=== PATIENT | female | born 1960 | race Caucasian/White ===

== ENCOUNTER 2020-04-18 07:43 | Outpatient (CLI) | payer OTHER, SELFPAY ==
--- NOTE | ~2020-04-18 | MM_ITS ---
EXAMINATION: MM screening keiry BI w juan j HISTORY: Screening mammogram TECHNIQUE: Craniocaudal and mediolateral oblique 3-D tomosynthesis images were obtained and synthetic 2-D images were generated. CAD analysis was submitted and interpreted. COMPARISON: 02/12/2019, 02/09/2018, 02/05/2017 bilateral digital screening mammogram examinations BREAST PARENCHYMAL COMPOSITION: There are scattered areas of fibroglandular density. FINDINGS: There is no evidence of suspicious mass, calcification, or architectural distortion to sugg est malignancy in either breast. There has been no suspicious interval change. IMPRESSION: 1. No mammographic evidence of malignancy. 2. Recommend routine screening mammography in one year. BI-RADS Category 1: Negative Reviewed, dictated and finalized at location A. [employer]
--- NOTE | ~2020-04-18 | DEXA_ITS ---
Bone Density Report Name: Madeleine Poole Age: 59 Sex: Female Ethnicity: White Date of : 1960 Indication: postmenopausal; height loss; Referring Provider: Katina, Nicole Study: Bone densitometry was performed. Exam Date: April 18, 2020 Accession number: [id number] Bone Density: Region BMD T-score Z-score Classification AP Spine (L1-L4) 1.346 2.7 4.0 Normal Femoral Neck (Left) 0.993 1.3 2.5 Normal Total Hip (Left) 1.160 1.8 2.6 Normal Total Hip Bilateral Avg 1.128 1.5 2.3 Normal Femoral Neck (Right) 0.943 0.8 2.0 Normal Total Hip (Right) 1.094 1.2 2.0 Normal World Health Organization criteria for BMD impression classify patients as: Normal (T-score at or above -1.0), Osteopenia (T-score between -1.0 and -2.5), or Osteoporosis (T-score at or below -2.5). 10-year Fracture Risk: FRAX not reported because: All T-scores for Spine Total, Hip Total, Femoral Neck at or above -1.0 Clinical Information Provided by Patient: Has used the following medications: Vitamin D Patient maximum height was 66.5 Menopause Age: 52 No regular weight bearing exercise Drinks caffeinated beverages Onset of menses at age 15 Number of children 3 Impression: The patient has normal bone mass. Discussion: BONE DENSITY IS ABOVE THE MINIMUM DESIRABLE LEVEL AT ALL SKELETAL SITES TESTED. This patient?s bone mineral density is above the minimum desirable level (T-score -1.0 or better) at all sites measured. The patient should follow a healthful lifestyle (good nutrition with adequate calcium and vitamin D, and appropriate weight-bearing exercise). Follow-Up: Consider repeating this study in 5 years or sooner if there is some new clinical indication. Reported by: [facility] on 04/18/2020 8:28:00 AM. Reviewed, dictated and finalized at location ATrevor ARREOLA
== END 2020-04-18 07:44 | disposition home or self-care (01) ==
PROVIDERS: PCP Internal Medicine; Visit Provider Nurse Practitioner
DX: Z12.31 Encounter for screening mammogram for malignant neoplasm of breast (principal); Z78.0 Asymptomatic menopausal state
CPT/HCPCS: 77063; 77067; 77080

== ENCOUNTER 2020-05-19 07:50 | Outpatient (CLI) | payer OTHER, SELFPAY ==
--- NOTE | 2020-05-19 12:53 | P.PCNPFT_ITS ---
PFT Interpretation This is a pulmonary function test with pre and post-bronchodilator spirometry, plethysmography and diffusing capacity. The test was performed and results interpreted in accordance with the 2019 and 2005 ATS/ERS Task Force guidelines respectively using the Global Lung Function Initiative-2012 reference equations. Patient demonstrated good effort and c ooperation. Reproducibility criteria were met. The quality of the pre bronchodilator spirometry maneuver was Grade A and post bronchodilator spirometry maneuver was Grade A. Findings: Spirometry: the contour of the inspiratory and expiratory flow tracing are normal. The pre bronchodilator FVC is 3.35 L, 95% predicted. The pre bronchodilator FEV1 is 2.66 L, 96% predicted. The FEV1: FVC ratio was 80%. The post bronchodilator FVC is 3.25 L, representing a 3% decrease. The post bronchodilator FEV1 is 2.69 L, representing 1% increase. Plethysmography: The total lung capacity is 4.42 L, 82% predicted. The functional residual capacity is 1.75 L, 57% predicted. The residual volume is 1.07 L, 53% predicted. Diffusing capacity: The absolute diffusion capacity is 21.0, 92% predicted. The diffusing capacity corrected for alveolar volume is 4.78, 109% predicted. Impression: The spirometry is normal without evidence of an obstructive abnormality. There is no significant improvement after inhaling a single dose of albuterol. There is a reduction in the residual volume and functional residual capacity with a normal total lung capacity. This is an abnormal but nonspecific lung volume pattern. The diffusing capacity is normal. There are no prior studies for comparison
== END 2020-05-19 07:51 | disposition home or self-care (01) ==
PROVIDERS: PCP Physician Assistant; Visit Provider Physician Assistant
DX: R05 Cough (principal)
CPT/HCPCS: 94060; 94726; 94729

== ENCOUNTER 2020-12-17 11:53 | Emergency (ER) | payer OTHER, SELFPAY ==
--- NOTE | ~2020-12-17 | CT_ITS ---
EXAMINATION: CTA chest PE protocol DATE: 12/17/2020 13:54 INDICATION: Chest pain. TECHNIQUE: Computed tomography angiography (CTA) of the chest was performed with 100 mL Omnipaque-350 intravenous contrast timed to evaluate the pulmonary arteries. Coronal maximum intensity projection 3D-reconstructions were created by the technologist. Automated exposure control and iterative reconst ruction technique were employed. The dose-length product was 831.21 mGy-cm. COMPARISON: None. FINDINGS: Calcified pulmonary nodules and calcified hilar and mediastinal lymph nodes are consistent with old granulomatous disease. There is mild atelectasis bilaterally. No pleural effusion. The heart size is normal. No pericardial effusion. There is no pulmonary embolus. There is levocurvature of up per thoracic spine and dextroscoliosis of lower thoracic spine. There is mild thoracic spondylosis. IMPRESSION: 1. No pulmonary embolus. Reviewed, dictated and finalized at location A. IMPRESSION: 1. No pulmonary embolus.
--- NOTE | ~2020-12-17 | XR_ITS ---
EXAMINATION: XR chest 2V EXAM DATE: 12/17/2020 12:24 INDICATION: chest pain x 3 days, cough. TECHNIQUE: Frontal and lateral projections of the chest obtained and reviewed. Comparison is made to prior examination from 12/01/2018. FINDINGS: Couple of calcified granulomata. The lungs are otherwise clear. There are no pleural effu sions. The cardiomediastinal silhouette is within normal limits. There is no pneumothorax suspected . The bones and soft tissues are unremarkable. IMPRESSION: No acute cardiopulmonary findings. Reviewed, dictated and finalized at location B.
[2020-12-17 12:05] VITALS: BP 161/70; PULSE 61; RESP 17; TEMP 36.6; O2SAT 100
--- NOTE | 2020-12-17 12:06 | ECG_ITS ---
Measurements Intervals Gilman Rate: 57 P: 66 MD: 148 QRS: 7 QRSD: 93 T: 49 QT: 412 QTc: 403 Interpretive Statements SINUS BRADYCARDIA DELAYED PRECORDIAL R/S TRANSITION LOW QRS VOLTAGE IN PRECORDIAL LEADS BORDERLINE ECG Electronically Signed On 12-17-2020 12:20:00 CDT by Sterling Hui D.O.
[2020-12-17 12:48] LABS: Basophils Percent Auto 0.5 % (0.2-1.2); Eosinophils Absolute Auto 0.2 K/mm3 (0-0.3); Hematocrit 37.9 % (37.0-47.0); Hemoglobin 12.4 g/dL (12.0-15.0); Immature Granulocyte Absolute 0.02 K/mm3 (0.00-0.031); Immature Granulocyte Percent A 0.3 % (0-0.5); Lymphocytes Absolute Auto 1.66 K/mm3 (0.9-3.2); Lymphocytes Percent Auto 26.6 % (18.3-44.2); Mean Corpuscular HGB Conc 32.7 g/dl (32-36); Mean Corpuscular Hemoglobin 29.9 pg (26-34); Mean Corpuscular Volume 91.3 fl (80-100); Mean Platelet Volume 9.8 fl (7.4-10.4); Monocytes Absolute Auto 0.5 K/mm3 (0.1-0.6); Monocytes Percent Auto 7.7 % (2.6-8.5); Neutrophils Absolute Auto 3.9 K/mm3 (1.3-6.7); Neutrophils Percent Auto 61.9 % (45.5-73.1); Platelet Count Result 207 k/mm3 (150-375); Red Blood Count 4.15 M/mm3 (4.2-5.4); Red Cell Distribution Width 14.1 % (11.5-14.5); White Blood Count 6.2 K/mm3 (4.5-10.0)
[2020-12-17 12:57] LABS: Partial Thromboplastin Time 26.5 SECONDS (22.3-36.8)
[2020-12-17 13:03] LABS: Anion Gap 7 mmol/L (8-16); Blood Urea Nitrogen 15 mg/dL (7-17); Calcium 9.4 mg/dL (8.4-10.2); Carbon Dioxide 30 mmol/L (22-30); Chloride 106 mmol/L (98-107); Estimated CRCL calculation 82 ml/min; Estimated Glomerular Filt Rate > 60; Glucose 89 mg/dL (65-110); Potassium 3.6 mmol/L (3.4-5.0); Sodium 143 mmol/L (137-145)
[2020-12-17 13:09] VITALS: BP 170/73; PULSE 62; RESP 16; O2SAT 97
[2020-12-17 13:14] LABS: Troponin I < 0.012 ng/mL (0.000-0.034)
--- NOTE | 2020-12-17 13:21 | ED.CHESTPAIN ---
HPI - Chest Pain General Chief Complaint: Chest Pain Stated Complaint: heartburn, back pain Time Seen by Provider: 12/17/20 13:04 Source: RN notes reviewed History of Present Illness HPI narrative: Patient presents emergency department from home for chest pain. Patient states chest pain began approximately 3 days ago. The pain is located in the left upper chest and radiates around to the back and down the left arm. Pain is described as aching in nature states it is improved when she is coughing she notes mild shortness of breath she denies any fevers or chills nausea vomiting diarrhea or any other symptoms denies any previous cardiac history. States the pain feels like gastric reflux Related Data Home Medications Medication Instructions Recorded Confirmed cholecalciferol (vitamin D3) 25 25 mcg PO DAILY 04/25/20 04/25/20 mcg (1,000 unit) capsule magnesium 250 mg tablet 250 mg PO DAILY 04/25/20 04/25/20 Allergies Allergy/AdvReac Type Severity Reaction Status Date / Time No Known Allergies Allergy Unverified 04/25/20 08:29 Review of Systems Review of Systems: Gen.: Denies fevers or chills ENT: Denies congestion Respiratory: Denies shortness of breath or cough CV: See HPI GI: Denies abdominal pain nausea, emesis or diarrhea Musculoskeletal: Denies back pain or muscle pain Neuro: Denies numbness, tingling, weakness or focal weakness Skin: Denies rash Except as documented, all other systems reviewed and negative [facility] Past Medical History Medical History Anxiety Family History Family History Father Cancer Other Cerebrovascular accident Social History Social History Smoking status: Never smoker Alcohol intake: current Substance use: never Exam Narrative: APPEARANCE: No acute distress, nontoxic, resting in bed EYES: EOMI HEENT: Normocephalic, atraumatic, OMM RESPIRATORY: No respiratory distress Clear to auscultation bilaterally with no rhonchi wheezing or rales. CARDIOVASCULAR: Regular rate and rhythm without murmurs rubs or gallops. Chest: Tender palpation of the left anterior chest in the region of ribs 4 through 6 with corresponding tenderness in the back in the same region ABDOMINAL: Soft, nontender, nondistended, no rebound or guarding Back: No midline thoracic or tenderness palpation tender palpation over left paravertebral muscles T4-6 MUSCULOSKELETAl: Moves all extremities. No clubbing, cyanosis or edema. NEURO: Awake and alert. Following commands, speech normal, no focal deficits SKIN:: Warm, dry. No rashes lesions or abrasions PSYCHIATRIC: Normal affect/mood, Course Course Emergency Course: Patient states chest pain is resolved at this time with medication Plan discussed with Dr. Hui. At this time with patient's pain ongoing for 3 days and on current heart score 2 June discharge to follow-up as an outpatient Discussed with patient results of workup and diagnosis. Discussed need for follow-up with primary care, proper use of medication, and reasons to return to the emergency department. Patient understands and agrees to current treatment plan Vital Signs Vital signs: Vital Signs Temperature 97.8 F 12/17/20 12:05 Pulse Rate 61 12/17/20 12:05 Respiratory Rate 17 12/17/20 12:05 Blood Pressure 161/70 H 12/17/20 12:05 Pulse Oximetry 100 12/17/20 12:05 Temperature 97.8 F 12/17/20 12:05 Pulse Rate 62 12/17/20 13:09 Respiratory Rate 16 12/17/20 13:09 Blood Pressure 170/73 H 12/17/20 13:09 Pulse Oximetry 97 12/17/20 13:09 MDM - Chest Pain MDM Narrative Medical decision making narrative: Patient's EKGs and labs are without significant high risk changes. Cardiac risk factors reviewed. Patient is felt likely low risk for ACS and reasonable for further risk stratification testing as an outpati
[2020-12-17] MEDS: KETOROLAC 30 MG/ML VIAL (*BKC) IV PUSH (13:25)
[2020-12-17 13:26] LABS: Prothrombin Time 13.3 Seconds (11.1-14.7)
[2020-12-17 13:30] LABS: Alanine Aminotransferase 32 U/L (4-35); Albumin Level 4.4 g/dL (3.5-5.1); Alkaline Phosphatase 80 U/L (38-126); Aspartate Amino Transferase 38 U/L (14-36); Bilirubin,Total 0.3 mg/dL (0.2-1.3); Lipase 52 U/L (23-300)
[2020-12-17 13:33] LABS: D Dimer 0.95 ug/mL (<0.48)
[2020-12-17 16:24] LABS: Troponin I < 0.012 ng/mL (0.000-0.034)
[2020-12-17 17:05] VITALS: BP 159/77; PULSE 59; RESP 16
== END 2020-12-17 17:15 | disposition home or self-care (01) ==
PROVIDERS: Emergency Provider Emergency Medicine; PCP Internal Medicine
DX: R07.89 Other chest pain (principal)
CPT/HCPCS: 36415; 71046; 71275; 80048; 80076; 83690; 84484; 85025; 85380; 85610; 85730; 93005; 96374; 99284; J1885; Q9967

== ENCOUNTER 2021-01-21 09:32 | Outpatient (CLI) | payer OTHER, SELFPAY ==
--- NOTE | ~2021-01-21 | XR_ITS ---
XR knee LT 3V 01/21/2021 09:54 Indication: Left knee pain Procedure: 3 views left knee Comparison: No prior studies for comparison. Findings: No fracture, subluxation or dislocation. There is tricompartment osteoarthritis, most advan deejay in the medial compartment. No significant joint effusion. No foreign bodies. 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 Reviewed, dictated and finalized at location B. 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
== END 2021-01-21 09:33 | disposition home or self-care (01) ==
LOC: ANHIMG 09:34
PROVIDERS: PCP Physician Assistant; Visit Provider Physician Assistant
DX: M17.12 Unilateral primary osteoarthritis, left knee (principal)
CPT/HCPCS: 73562

== ENCOUNTER 2021-01-26 07:50 | Outpatient (CLI) | payer OTHER, SELFPAY ==
--- NOTE | 2021-01-26 08:03 | ECHO_ITS ---
Patient Info Name: Madeleine Poole Age: 60 years : 1960 Gender: Female Ht: 67 in Wt: 230 lbs BSA: 2.26 m2 HR: 63 bpm BP: 151 / 75 mmHg Exam Date: 01/26/2021 8:25 AM Exam Location: [facility] Patient Status: Outpatient Admit Date: 01/26/2021 Staff Ordering Physician: Sterling Hui DO Edi Consultant: Neal Croft, ELIZABETH, RT Attending Provider: Sterling Hui DO Referring Physician: Ez PERRY; Exam Type: CA echo doppler color flow Study Info Indications R06.00 - Dyspnea, unspecified Complete two-dimensional, color flow and Doppler transthoracic echocardiogram is performed. Strain analysis performed. Summary 1. Complete two-dimensional, color flow and Doppler transthoracic echocardiogram is performed. 2. Left ventricular chamber dimension is normal. 3. Left ventricular systolic function is normal, estimated at 55-60%. 4. The left ventricular diastolic function is normal. 5. E/e' 7 is not elevated. 6. There is mild aortic valve sclerosis. 7. There is mild mitral valve regurgitation. 8. There is mild tricuspid valve regurgitation. Left Ventricle E/e' 7 is not elevated. Left ventricular chamber dimension is normal. Left ventricular systolic function is normal, estimated at 55-60%. The left ventricular diastolic function is normal. Right Ventricle Right ventricular systolic function is normal and with normal TAPSE 2.9 cm. Right ventricular chamber dimension is normal. Left Atria Left atrial chamber dimension is normal. Right Atria Right atrial chamber dimension is normal. Aortic Valve The aortic valve is trileaflet. There is mild aortic valve sclerosis. There is no aortic valve stenosis. There is no aortic valve regurgitation. Pulmonic Valve There is no pulmonic regurgitation. Mitral Valve There is no mitral valve stenosis. There is mild mitral valve regurgitation. Tricuspid Valve There is mild tricuspid valve regurgitation. RVSP is not calculated due to an inadequate TR jet. Pericardium/Pleural There is no pericardial effusion. Inferior Vena Cava Normal inferior vena cava with >50% collapse upon inspiration consistent with normal right atrial pressure, 5 mmHg. Aorta The aortic root size at the sinus of Valsalva is normal. Left Ventricular Outflow Tract Name Value Normal LVOT 2D LVOT Diameter 2.0 cm LVOT Doppler LVOT Peak Gradient 4 mmHg LVOT Mean Gradient 2 mmHg LVOT VTI 23 cm LVOT VTI/AV VTI Ratio 0.7 LVOT Stroke Volume 73 ml LVOT CO 3.7 l/min LVOT CI 1.6 l/min/m2 Mitral Valve Name Value Normal MV Doppler MV Peak Gradient 1 mmHg MV Mean Gradient
== END 2021-01-26 07:51 | disposition home or self-care (01) ==
PROVIDERS: PCP Physician Assistant; Visit Provider Internal Medicine Cardiovascular Disease
DX: R06.00 Dyspnea, unspecified (principal); I35.1 Nonrheumatic aortic (valve) insufficiency; I36.1 Nonrheumatic tricuspid (valve) insufficiency; I70.0 Atherosclerosis of aorta
CPT/HCPCS: 93306

== ENCOUNTER 2021-04-20 07:39 | Outpatient (CLI) | payer OTHER, SELFPAY ==
--- NOTE | ~2021-04-20 | MM_ITS ---
EXAMINATION: MM screening [facility] BI w juan j HISTORY: Screening mammogram TECHNIQUE: Craniocaudal and mediolateral oblique 3-D tomosynthesis images were obtained and synthetic 2-D images were generated. CAD analysis was submitted and interpreted. COMPARISON: 04/18/2020, 02/12/2019 BREAST PARENCHYMAL COMPOSITION: There are scattered areas of fibroglandular density. FINDINGS: There is no evidence of suspicious mass, calcification, or architectural distortion to sugg est malignancy in either breast. There has been no suspicious interval change. IMPRESSION: 1. No mammographic evidence of malignancy. 2. Recommend routine screening mammography in one year. BI-RADS Category 1: Negative Reviewed, dictated and finalized at location A. WELDER
== END 2021-04-20 07:40 | disposition home or self-care (01) ==
LOC: ANHIMG 07:44
PROVIDERS: PCP Physician Assistant; Visit Provider Nurse Practitioner
DX: Z12.31 Encounter for screening mammogram for malignant neoplasm of breast (principal)
CPT/HCPCS: 77063; 77067

== ENCOUNTER → 2021-06-10 11:21 | Outpatient (CLI) | payer OTHER, SELFPAY ==
--- NOTE | ~2021-06-10 | MR_ITS ---
EXAMINATION: MR knee LT wo con DATE: 06/10/2021 11:52 INDICATION: Left knee pain TECHNIQUE: Magnetic resonance imaging (MRI) of the left knee was performed without intravenous contra st. Sequences included coronal PD-weighted FSE, coronal PD-weighted FS FSE, sagittal T2-weighted FSE , sagittal PD-weighted FS FSE and axial PD weighted fat saturated FSE. COMPARISON: None. FINDINGS: Medial compartment: Complex tear of the body and posterior horn of the medial meniscus. Remaining posterior horn is small . Displaced meniscal flap extends cephalad from the medial extruded meniscal body and into the recess along the medial margin of the anterior weightbearing medial femoral condyle. There is extensive ful l and near full-thickness cartilage loss along the anterior to central weightbearing medial femoral c ondyle and and medial quadrant of the medial tibial plateau. There is mild underlying edema-like laine ow signal change along with moderate size marginal osteophytes. Lateral compartment: Lateral meniscus is normal. There is a region of the deep chondral ulceration with underlying edema-l izabel marrow signal change at the medial side of the central weightbearing lateral femoral condyle as w ell as a small region along the the juxtaposed articular surface of the intercondylar eminence. Mode rate size marginal osteophytes are present. Patellofemoral compartment: Extensive full/near full-thickness cartilage loss without degenerative subchondral changes at the lat eral patellar facet and small portion of the central apical ridge. Mild partial-thickness cartilage l oss with relatively smooth chondral surface along the medial patellar facet. Additional cartilage los s in place approaching full-thickness with mild subarticular edema-like signal change at the lateral trochlea and less severe partial thickness chondral ulceration without degenerative subchondral ochoa es at the trochlear groove and inferolateral aspect of the medial trochlea. Moderate-sized marginal o steophytes are present. Ligaments and tendons: Anterior and posterior cruciate ligaments are normal. The medial collateral ligament and fibular alda ateral ligament complex are normal. Enthesophytes at the patellar insertions of the otherwise normal distal quadriceps and proximal patellar tendons and at the anterior tibial tuberosity insertion of th e distal patellar tendon. The visualized medial and lateral hamstring tendons as well as the iliotibi al band are normal. Fluid: Small left knee joint effusion. No loose osteochondral bodies identified. There is some synovitis at the suprapatellar pouch, along the posterior margin of Hoffa's fat pad as well as at the popliteal re cess. Osseous/other: There is mild lateral patellar subluxation. There is also mild lateral subluxation of the tibial plat eau with respect to the femoral condyles. No fracture or abnormal marrow replacing process. IMPRESSION: 1. Complex medial meniscal tear. 2. Tricompartmental osteoarthritis, moderate to severe with extensive high-grade chondromalacia in th e medial compartment and lateral side of the patellofemoral compartment and mild with a couple small regions of high-grade chondromalacia in the lateral compartment. Reviewed, dictated and finalized at location A. IMPRESSION: 1. Complex medial meniscal tear. 2. Tricompartmental osteoarthritis, moderate to severe with extensive high-grad e chondromalacia in the medial compartment and lateral side of the patellofemor al compartment and mild with a couple small regions of high-grade chondromalaci a in the lateral compartment.
== END ==
PROVIDERS: PCP Physician Assistant; Visit Provider Physician Assistant Surgical
DX: M25.562 Pain in left knee (principal); S83.232A Complex tear of medial meniscus, current injury, left knee, initial encounter; M17.12 Unilateral primary osteoarthritis, left knee; M94.262 Chondromalacia, left knee
CPT/HCPCS: 73721

== ENCOUNTER 2021-07-31 01:37 | Day surgery (SDC) | payer OTHER, SELFPAY ==
[2021-07-24 11:06] VITALS: BMI 37.1
--- NOTE | 2021-07-24 11:16 | PC.NURSE ---
Addendum entered by Paige Maldonado RN 07/24/21 11:19: PT TO STOP TAKING VITAMINS/SUPPLEMENTS 3 DAYS PRIOR TO SURGERY (LAST DOSE 07/27) Original Note: Report to the Outpatient Waiting Room, entrance under the [place] [facility] located off [facility], at time 1130 on date 07/31/21. OR Time: 1330. - You and your visitor will be asked a series of questions to screen for COVID 19 for your protection. - Only one visitor is allowed at this time. - The patient visitor is requested to leave or wait in car when not with patient. - A mask is required within the hospital. Patients may have clear liquids (water, carbonated beverages, clear teas, apple juice) until 3 hours prior to surgery with a maximum of 20 ounces. - No food from midnight until time of surgery Take the following medications with a SIP of water the morning of surgery: NONE Medications to discontinue per physician: IBUPROFEN PER DR. RUFFIN Date to take last dose: 07/23/21 Please no make-up, nail faroese, hairspray, perfume, deodorant, or body powder the day of surgery. No jewelry (including any body piercings) or valuables the day of surgery, leave them at home. Please take a shower or bath the night before, or the morning of, surgery with an antibacterial soap. Wear comfortable, loose fitting clothing. - Jewelry must be removed prior to entering the operating room. Rings and piercings that are not removed may be cut off. - The hospital will not accept responsibility for valuables. - Please leave all valuables, including medications, at home the day of surgery. If you are going home after surgery, a licensed bottom hoop driver must drive you home. - NO public transportation without another adult. - We recommend that an adult stay with you for 24 hours following discharge. - We also recommend that you do not drive, make important decision, drink alcoholic beverages, or take any drugs that were not prescribed by your health care provider for at least 24 hours after your discharge time. Follow any additional instructions given to you from your surgeon. If you or anyone in your household have experienced Covid symptoms in the past week, please notify your surgeon or the nurse liaison at the phone number below for possible testing. Telephone instructions given to PT - ERYN GODOY and asked if any additional questions and then verbalized understanding. Patient advised to call surgeon office or pre surgery nurse liaison [phone] if any additional questions.
--- NOTE | 2021-07-30 12:11 | WPDANESEPPF ---
Anes - Initial Pre Proc Eval Procedure: Operation Date: 07/31/21 13:30 Proposed Procedures p Left Knee Arthroscopic Partial Medial Meniscectomy - Jaspreet Trevizo MD Date/Time: 07/30/21 12:11 Surgeon: Jaspreet Trevizo MD Pre Op Diagnosis: Lt Knee Medial Meniscus Tear Patient Data Age: 60 Gender: F Height: 1.68 m Weight: 104.33 kg Allergies Allergy/AdvReac Type Severity Reaction Status Date / Time No Known Allergies Allergy Verified 07/31/21 11:41 Home Medications Medication Instructions Recorded Confirmed Type ibuprofen 200 mg tablet (Advil) 200 mg PO Q6H PRN Pain 01/28/21 07/31/21 History multivitamin 1 tablet PO DAILY 07/24/21 07/31/21 History Patient hx anesthesia problems: none Family hx anesthesia problems: none Results Review: All pre-operative results and documents have been reviewed as part of the pre-operative evaluation. [facility] Past Medical History Medical History Anxiety History of stress test (~2019) Surgical History Surgical History History of foot surgery Family History Family History Father Cancer Other Cerebrovascular accident Social History Social History Smoking status: Never smoker Alcohol intake: current Drinks per week: 5 Substance use: never Substance use type: does not use Living arrangements: with family Spiritual care concerns: No Anes - Eval Final PreProcedure Day of Procedure 07/30/21 12:11 Patient weight: obese Heart: regular rate and rhythm Lungs: clear to auscultation and normal air movement Airway: Mallampati scale class II Neurological: alert and oriented Last oral intake: >/= 8 hours ASA classification: II Emergent: no Anesthetic plan: proceed Anesthesia type and monitoring: general LMA Results Review: All pre-operative results and documents have been reviewed as part of the pre-operative evaluation. Informed Consent: The patient's anesthetic plan and its attendant risks and benefits were discussed with the patient/family/POA. Questions were solicited and answers provided to the satisfaction of the patient/family/POA.
[2021-07-31] VITALS (7 sets, daily range): BP systolic 102–139; BP diastolic 55–82; PULSE 57–79; RESP 12–18; TEMP 36.7–36.8; O2SAT 97–99
--- NOTE | 2021-07-31 10:16 | WPDHPUPDATE1 ---
History and Physical Update Update Date/Time: 07/31/21 10:16 History and Physical has been reviewed, including an updated exam of the patient. There are NO changes in the patient's condition. Risks, benefits, and alternatives have been discussed and questions answered. Patient agrees to proceed with procedure.
[2021-07-31] MEDS: LACTATED RINGERS 1,000 ML 30 ML IV CONT (12:00)
[2021-07-31] MEDS: ACETAMINOPHEN 500 MG TABLET 1000 MG PO (12:01)
[2021-07-31] MEDS: KETOROLAC 15 MG/ML VIAL (*BKC) IV PUSH (12:01)
[2021-07-31] MEDS: ceFAZolin 2 GM/D5W 50 ML 2 GM/50 ML BAG IVPB (12:59)
[2021-07-31] MEDS: BUPIVACAINE HCL 0.5% PF 30 ML VIAL 20 ML INFILTRATE (13:30)
--- NOTE | 2021-07-31 15:39 | P.OP_ITS ---
Procedure Note - Detailed Date of Procedure 07/31/21 Pre-op Diagnosis Lt Knee Medial Meniscus Tear Post-op Diagnosis Other (1. Complex degenerative medial meniscus tear 2. Degenerative arthritis ) Procedure Performed Arthroscopic partial medial meniscectomy with notch osteophyte debridement, left knee. Surgeon Jaspreet Trevizo MD Video Machines Mechanic Margarita Alvarez PA-C Anesthesia General Findings Complex medial meniscus tear. Significant unstable tissue. Extensive tricompartmental degenerative changes. Grade 4 chondromalacia throughout the patellofemoral joint and scattered throughout the medial and lateral compartments. Moderate osteophyte on the lateral condyle impinging on the ACL. This was shaved and rasped. Description of Procedure The patient was identified and the surgical site confirmed and signed in the preoperative holding area. Antibiotics were started per protocol. She was brought to the operative room and transferred to the OR table. A general anesthetic was administered. Supine position with the operative lower extremity position in the leg green after placement of a well padded tourniquet. The leg support was lowered and the contralateral limb was supported with a soft bolster. The knee was prepped and draped in the usual sterile fashion. A time- out was performed. The portal sites were marked and infiltrated with 0.5% Marcaine 20 mL. The limb was exsanguinated and the tourniquet inflated to 300 mL Hg. Standard inferolateral and inferomedial portals were established. Inflow was obtained with the saline pump. The camera was introduced. Diagnostic inspection of the joint was accomplished. The meniscus was debrided with the arthroscopic shaver and punches until stable. The ACL was frayed as it was clearly impinging on the lateral osteophyte. This was burred down with a shaver and smoothed wi th a rasp. Some of the fibers were previously damaged, but the ACL remained competent. The arthroscopic instruments were removed. The tourniquet released and wounds closed with subcutaneous 4-0 Monocryl absorbable suture. Steri strips and a sterile dressing were applied. A light elastic wrap was placed. The patient was extubated and brought to the recovery room in stable condition. Estimated Blood Loss 5 Drains No Complications No immediate complications Condition Stable Disposition PACU [facility] Billing Surgery - Charge Forward: Surgery Billing (charge for meniscectomy only.)
== END 2021-07-31 15:35 | disposition home or self-care (01) ==
PROVIDERS: PCP Physician Assistant; Visit Provider Orthopaedic Surgery
PROC: (CPT 29870; principal; 2021-07-31 13:30)
DX: S83.232A Complex tear of medial meniscus, current injury, left knee, initial encounter (principal); X50.0XXA Overexertion from strenuous movement or load, initial encounter; E66.9 Obesity, unspecified; Z68.38 Body mass index [BMI] 38.0-38.9, adult
CPT/HCPCS: 29881; A9270; J0690; J1100; J1885; J2250; J2405; J2704; J3010; J7120

== ENCOUNTER 2021-12-16 07:44 | Outpatient (CLI) | payer OTHER, SELFPAY ==
--- NOTE | 2021-12-16 08:23 | ECG_ITS ---
Measurements Intervals [place] Rate: 62 P: 32 DC: 148 QRS: -6 QRSD: 90 T: 34 QT: 418 QTc: 427 Interpretive Statements SINUS RHYTHM COMPARED TO ECG 12/17/2020 12:16:52 SINUS RHYTHM NOW PRESENT Electronically Signed On 12-16-2021 13:13:11 CDT by Shahriar Mandel M.D.
[2021-12-16 08:44] LABS: Hemoglobin 12.7 g/dL (12.0-15.0)
[2021-12-16 08:51] LABS: Urine Cotinine NEGATIVE
[2021-12-16 08:58] LABS: Albumin Level 4.6 g/dL (3.5-5.1); Estimated Glomerular Filt Rate > 60; Glucose 103 mg/dL (65-110)
[2021-12-16 09:00] LABS: Hemoglobin A1C 5.9 % (<5.7)
== END 2021-12-16 07:45 | disposition home or self-care (01) ==
PROVIDERS: PCP Physician Assistant; Visit Provider Orthopaedic Surgery
DX: Z92.89 Personal history of other medical treatment (principal); R06.00 Dyspnea, unspecified; E78.5 Hyperlipidemia, unspecified; E66.9 Obesity, unspecified; E55.9 Vitamin D deficiency, unspecified; M17.12 Unilateral primary osteoarthritis, left knee
CPT/HCPCS: 80307; 82040; 82565; 82947; 83036; 85014; 85018; 93005

== ENCOUNTER 2022-02-08 11:33 | Outpatient (CLI) | payer OTHER, SELFPAY ==
[2022-02-08 13:01] LABS: Basophils Absolute Auto 0.1 K/mm3 (0.0-0.1); Basophils Percent Auto 0.7 % (0.2-1.2); Eosinophils Absolute Auto 0.2 K/mm3 (0-0.3); Hematocrit 38.7 % (37.0-47.0); Hemoglobin 12.4 g/dL (12.0-15.0); Immature Granulocyte Absolute 0.02 K/mm3 (0.00-0.031); Immature Granulocyte Percent A 0.3 % (0-0.5); Lymphocytes Absolute Auto 2.47 K/mm3 (0.9-3.2); Lymphocytes Percent Auto 32.3 % (18.3-44.2); Mean Corpuscular Hemoglobin 29.2 pg (26-34); Mean Corpuscular Volume 91.1 fl (80-100); Mean Platelet Volume 9.8 fl (7.4-10.4); Monocytes Absolute Auto 0.5 K/mm3 (0.1-0.6); Monocytes Percent Auto 5.9 % (2.6-8.5); Neutrophils Absolute Auto 4.5 K/mm3 (1.3-6.7); Neutrophils Percent Auto 58.8 % (45.5-73.1); Platelet Count Result 244 k/mm3 (150-375); Red Blood Count 4.25 M/mm3 (4.2-5.4); Red Cell Distribution Width 14.6 % (11.5-14.5); White Blood Count 7.6 K/mm3 (4.5-10.0)
[2022-02-08 13:10] LABS: Urine Cotinine NEGATIVE
[2022-02-08 13:14] LABS: Albumin Level 4.5 g/dL (3.5-5.1); Estimated Glomerular Filt Rate > 60; Glucose 89 mg/dL (65-110)
== END 2022-02-08 11:34 | disposition home or self-care (01) ==
PROVIDERS: PCP Physician Assistant; Visit Provider Orthopaedic Surgery
DX: M17.12 Unilateral primary osteoarthritis, left knee (principal); Z01.818 Encounter for other preprocedural examination
CPT/HCPCS: 80307; 82040; 82565; 82947; 85025; 87081

== ENCOUNTER 2022-03-09 00:45 | Day surgery (SDC) | payer OTHER, SELFPAY ==
[2022-02-08 11:50] VITALS: BMI 37.7
--- NOTE | 2022-02-08 12:10 | PC.NURSE ---
Report to the Outpatient Waiting Room, entrance under the green pavilion located off [address], at time __0600 on date _03/09/22 . Planned Procedure Time: _0730 . Time changes happen often and if your time is changed the preop area will call you the afternoon before. - You and your visitor will be asked to self-screen and do not enter if you have any COVID symptoms. - Only one visitor is requested with a max of two and NO children visitors are allowed at this time. - The patient visitor may be requested to leave or wait in car when not with patient due to distancing restrictions. - A mask is optional within the hospital. Patients may have clear liquids (water, carbonated beverages, clear teas, apple juice) until 3 hours prior to surgery with a maximum of 20 ounces. - No food from midnight until time of surgery - Infants may have breast milk until 4 hours before surgery, formula 6 hours prior to surgery. - Children will be allowed to drink immediately following surgery. If applicable, please bring a bottle or sippy cup to assist with drinking. Juice, water, soda, and popsicles are readily available. For infants on formula, please bring formula the day of surgery. Pacifiers are allowed. Take the following medications with a SIP of water the morning of surgery: ___NONE Medications to discontinue per physician IBURPOFEN 7 DAYS PRE OP .LAST DOSE 03/01/22. ALL VITAMINS AND SUPPLEMENT 3 DAYS PRE OP____LAST DOSE 03/05/22 Date to take last dose TOTAL JOINT CLASS 02/24/22 AT 10 AM Please no make-up, nail belarusian, hairspray, perfume, deodorant, or body powder the day of surgery. No jewelry (including any body piercings) or valuables the day of surgery, leave them at home. Please take a shower or bath the night before, or the morning of, surgery with an antibacterial soap. Wear comfortable, loose fitting clothing. Children are encouraged to wear pajamas. - Jewelry must be removed prior to entering the operating room. Rings and piercings that are not removed may be cut off. - The hospital will not accept responsibility for valuables. - Please leave all valuables, including medications, at home the day of surgery. If you are going home after surgery, a licensed automobile drivers must drive you home. - NO public transportation without another adult if you receive anesthesia. - We recommend that an adult stay with you for 24 hours following discharge. - We also recommend that you do not drive, make important decision, drink alcoholic beverages, or take any drugs that were not prescribed by your health care provider for at least 24 hours after your discharge time. Follow any additional instructions given to you from your surgeon. If you or anyone in your household have experienced Covid symptoms in the past week, please notify your surgeon or the nurse liaison at the phone number below for possible testing. VERBAL AND WRITTEN instructions given to _PATIENT and asked if any additional questions and then verbalized understanding. Patient advised to call surgeon office or pre surgery nurse liaison [phone] if any additional questions.
[2022-02-08 12:35] VITALS: BP 146/76; PULSE 62; RESP 18; TEMP 37.1; O2SAT 100
--- NOTE | 2022-03-08 12:28 | WPDANESEPPF ---
Anes - Initial Pre Proc Eval Procedure: Operation Date: 03/09/22 07:30 Proposed Procedures p Left Total Knee Arthroplasty - Jaspreet Trevizo MD Date/Time: 03/08/22 12:28 Surgeon: Jaspreet Trevizo MD Pre Op Diagnosis: primary OA left knee Patient Data Age: 61 Gender: F Height: 1.69 m Weight: 107.6 kg Last Vital Signs Temp 37.1 C 02/08/22 12:35 Pulse 62 02/08/22 12:35 Resp 18 02/08/22 12:35 BP 146/76 H 02/08/22 12:35 Pulse Ox 100 02/08/22 12:35 O2 Del Method Room Air 02/08/22 12:35 Allergies Allergy/AdvReac Type Severity Reaction Status Date / Time No Known Allergies Allergy Verified 03/09/22 06:22 Home Medications Medication Instructions Recorded Confirmed Type multivitamin 1 tablet PO DAILY 07/24/21 03/09/22 History cholecalciferol (vitamin D3) 125 125 mcg PO DAILY 02/08/22 03/09/22 History mcg (5,000 unit) tablet ibuprofen 800 mg tablet 800 mg PO PRN PRN Pain 02/08/22 03/09/22 History Patient hx anesthesia problems: none Family hx anesthesia problems: none Results Review: All pre-operative results and documents have been reviewed as part of the pre-operative evaluation. [facility] Past Medical History Medical History Anxiety History of stress test (~2019) Surgical History Surgical History (Updated 03/09/22 @ 07:05 by Fede Garcia DO) History of foot surgery History of tubal ligation Family History Family History Father Cancer Other Cerebrovascular accident Social History Social History Smoking status: Never smoker Additional smoking assessment comments: DENIES ANY FORM OF TOBACCO USE Alcohol intake: current Drinks per week: 2 Substance use: never Substance use type: does not use Lack of Transportation: No Lack of Food: Never True Current Housing: I Have Housing Concerned About Future Housing: No Difficulty Paying Gas/Electric Bills: No Difficulty Paying for Meds: No Currently Unemployed: No Education: High School Diploma/GED Difficulty w/ Childcare or Family Care: No Living arrangements: with family Spiritual care concerns: No Anes - Eval Final PreProcedure Day of Procedure 03/08/22 12:28 Patient weight: obese Heart: regular rate and rhythm Lungs: clear to auscultation Airway: Mallampati scale class II Neurological: alert and oriented Last oral intake: >/= 8 hours ASA classification: II Emergent: no Anesthetic plan: proceed Anesthesia type and monitoring: general LMA and standard monitoring Results Review: All pre-operative results and documents have been reviewed as part of the pre-operative evaluation. Informed Consent: The patient's anesthetic plan and its attendant risks and benefits were discussed with the patient/family/POA. Questions were solicited and answers provided to the satisfaction of the patient/family/POA.
[2022-03-09] VITALS (18 sets, daily range): BP systolic 119–148; BP diastolic 50–77; PULSE 50–67; RESP 12–18; TEMP 36.3–37.3; O2SAT 95–100; BMI 37.8
--- NOTE | ~2022-03-09 | XR_ITS ---
XR knee LT 2V DATE: 03/09/2022 09:31 INDICATION: Left total knee TECHNIQUE: Portable postoperative AP and crosstable lateral views of left knee COMPARISON: 11/23/2021 left knee FINDINGS: There is expected postoperative subcutaneous and intra-articular gas following total knee a rthroplasty with patellar resurfacing. No fracture or dislocation, periosteal reaction or bone destruction. No unusual radiopaque foreign river dy is noted. IMPRESSION: Status post left total knee arthroplasty with patellar resurfacing Reviewed, dictated and finalized at location [facility] [employer]
[2022-03-09] MEDS: ACETAMINOPHEN 500 MG TABLET 1000 MG PO (06:25)
[2022-03-09] MEDS: LACTATED RINGERS 1,000 ML 30 ML IV CONT ×2 (06:38→09:15)
[2022-03-09] MEDS: TRANEXAMIC ACID 1,000MG/ISO100 1,000 MG/100 ML BAG 200 MG IVPB (06:50)
--- NOTE | 2022-03-09 07:14 | WPDHPUPDATE1 ---
History and Physical Update Update Date/Time: 03/09/22 07:14 History and Physical has been reviewed, including an updated exam of the patient. There are NO changes in the patient's condition. Risks, benefits, and alternatives have been discussed and questions answered. Patient agrees to proceed with procedure.
--- NOTE | 2022-03-09 07:28 | WPDANESPNB ---
Anes - Peripheral Nerve Block Date/Time: 03/09/22 07:28 I have discussed with the patient/family/POA the placement of a peripheral nerve block for post-operative pain management, including associated risks, benefits, complications, and side effects. Alternative methods of post-operative analgesia were detailed. Questions were solicited and answers provided to the satisfaction of the patient/family/POA. Time-Out: A pre-procedural Time-Out was completed immediately before starting the procedure and confirmed: Patient Identification, Site, Procedure, Patient Position and the Availability of Requisite Equipment. Clinical Indications: Acute post-operative pain management requested by the operative surgeon. Nerve Block Insertion Note Anes-nerve block: adductor canal left Patient position: supine Skin prep: chlorhexidine Needle: 22 gauge, stimulating, insulated echogenic needle. Needle length: 80 mm Technique: ultrasound Injectate: bupivacaine 0.5% with epi 5 mcg/ml (30cc - no epi) Observations: tolerated well Complications: none Procedure start time:: 718 Procedure end time:: 722
[2022-03-09] MEDS: ceFAZolin 2 GM/D5W 50 ML 2 GM/50 ML BAG IVPB ×3 (07:34→23:43)
--- NOTE | 2022-03-09 09:23 | P.OP_ITS ---
Procedure Note - Detailed Date of Procedure 03/09/22 Pre-op Diagnosis primary OA left knee Post-op Diagnosis Same Procedure Performed Total knee arthroplasty, left knee. Surgeon Jaspreet Trevizo MD Branch Sales And Service Representative Margarita Alvarez PA-C Anesthesia General and Regional (subsartorial block) Findings Extensive tricompartmental disease. Mixed varus-valgus anatomy. Good bone quality. No significant releases required. Standard bony resections. Description of Procedure The patient was brought to the operating room. A general anesthetic was administered. The leg was prepped and draped in the usual sterile fashion. The limb was elevated and the tourniquet inflated to 300 mmHg during initial exposure, and cementation. A longitudinal incision was created along the medial border of the patella and patellar tendon, and a trivector approach to the knee was performed. No medial release was taken. The knee was then flexed. The osteophytes were carefully removed. The intramedullary guide was placed in the femoral canal. The distal femoral resection was then taken with the oscillating saw. The collateral ligaments were carefully protected. The tibia was carefully exposed. The jig was applied, and the proximal tibia was resected according to preoperative plan. The knee was balanced in extension. Appropriate releases were taken where needed. The anterior cruciate ligament and meniscal remnants were removed. The posterior cruciate ligament was preserved. The patella was measured. Patellar resection was carried out with the oscillating saw. The lug holes drilled. The femur was sized and rotation assessed using a combination of gap balancing, posterior referencing, and the AP axis. The 4 in 1 cutting block was used to finish the femoral cuts after equal gaps were assured. The osteophytes were carefully removed from the back of the knee. The knee was copiously irrigated with antibiotic solution periodically throughout the procedure. The meniscal remnants were removed. The spacer block was used to confirm equal flexion and extension gaps. No further releases were needed. The tibia was sized and broached. The bony surfaces were prepared for cementing with pulsatile lavage. The real tibia was cemented into position. The femur was press-fit. The patella was press-fit. Excess cement was carefully removed. Patellar tracking was carefully assessed. Dilute sterile Betadine soak performed for three minutes. Copious irrigation then performed. The wound was closed with #1 Vicryl suture, #2, 2-0, and 3-0 barbed suture, followed by Steri- Strips. A sterile bulky dressing was applied. Meticulous hemostasis was maintained throughout the procedure, and the bipolar cautery device was used. The pain relieving mixture was injected into the periarticular tissues during the procedure. There were no complications. The patient was extubated and brought to the recovery room in stable condition after the application of sterile dressing with Lorenzo bandage. Physician diploma medical assistant, Margarita Alvarez PA-C, required for surgery; including patient positioning, draping, tissue retraction, maintaining instrument position. Implants [employer] knee system, low profile cemented tibia size 4, press-fit cruciate retaining femoral component size 4 ,and an 9 mm cruciate retaining polyethylene insert. 35mm asymmetric metal backed tritanium patella component. Estimated Blood Loss -100.0 Drains No Pathology None sent Complications No immediate complications Condition Stable Disposition PACU [facility] Billing Surgery - Charge Forward: Surgery Billing
[2022-03-09] MEDS: fentaNYL CITRATE INJ (*CRX) 100 MCG/2 ML VIAL 25 MCG IV PUSH ×4 (09:30→10:08)
--- NOTE | 2022-03-09 10:33 | PC.NURSE ---
This patient, Madeleine Poole, was admitted to [facility] Surgery-1. Patient/family oriented to hospital policies and general routines including ID bracelet, bed and alarms, visiting hours, pain management, procedures, bathroom and other care routines, personal items, smoking policy, room service/diet, and visiting hours. Information on how to activate the Rapid Response Team has been discussed. Patient/Family are encouraged to report perceived risks to care and to ask questions if they do not understand what they are told or what they should do.
[2022-03-09] MEDS: SODIUM CHLORIDE 0.9% IV 1,000 ML 125 ML IV CONT (11:06)
[2022-03-09] MEDS: SENNA/DOCUSATE SODIUM TABLET 2 TAB PO ×2 (11:25→17:33)
[2022-03-09] MEDS: ASPIRIN 81 MG ENTERIC TABLET PO ×2 (11:26→17:34)
[2022-03-09] MEDS: polyethylene glycoL 3350 17 GM POWD.PACK PO (11:26)
[2022-03-09] MEDS: FAMOTIDINE 20 MG TABLET PO ×2 (11:26→20:28)
[2022-03-09] MEDS: MELOXICAM 7.5 MG TABLET PO ×2 (11:26→17:34)
[2022-03-09] MEDS: traMADol HCL (*CRX) 50 MG TABLET PO (14:21)
[2022-03-09] MEDS: oxyCODONE HCL (*CRX) 5 MG TAB IR PO (21:15)
[2022-03-09] MEDS: CYCLOBENZAPRINE HCL 10 MG TABLET PO (23:45)
[2022-03-10 05:33] LABS: Basophils Percent Auto 0.2 % (0.2-1.2); Eosinophils Percent Auto 0.2 % (0-4.4); Hematocrit 32.9 % (37.0-47.0); Hemoglobin 10.5 g/dL (12.0-15.0); Immature Granulocyte Absolute 0.04 K/mm3 (0.00-0.031); Immature Granulocyte Percent A 0.4 % (0-0.5); Lymphocytes Absolute Auto 2.15 K/mm3 (0.9-3.2); Lymphocytes Percent Auto 22.1 % (18.3-44.2); Mean Corpuscular HGB Conc 31.9 g/dl (32-36); Mean Corpuscular Hemoglobin 29.3 pg (26-34); Mean Corpuscular Volume 91.9 fl (80-100); Mean Platelet Volume 9.7 fl (7.4-10.4); Monocytes Absolute Auto 0.9 K/mm3 (0.1-0.6); Neutrophils Absolute Auto 6.6 K/mm3 (1.3-6.7); Neutrophils Percent Auto 68.1 % (45.5-73.1); Platelet Count Result 177 k/mm3 (150-375); Red Blood Count 3.58 M/mm3 (4.2-5.4); Red Cell Distribution Width 15.1 % (11.5-14.5); White Blood Count 9.7 K/mm3 (4.5-10.0)
[2022-03-10 05:42] LABS: Anion Gap 2 mmol/L (8-16); Blood Urea Nitrogen 13 mg/dL (7-17); Calcium 8.5 mg/dL (8.4-10.2); Carbon Dioxide 30 mmol/L (22-30); Chloride 107 mmol/L (98-107); Estimated CRCL calculation 75 ml/min; Estimated Glomerular Filt Rate > 60; Glucose 107 mg/dL (65-110); Potassium 4.4 mmol/L (3.4-5.0); Sodium 139 mmol/L (137-145)
[2022-03-10 05:44] VITALS: BP 120/58; PULSE 59; RESP 20; TEMP 36.7; O2SAT 100
[2022-03-10] MEDS: oxyCODONE HCL (*CRX) 5 MG TAB IR PO ×2 (05:46→09:18)
[2022-03-10] MEDS: ceFAZolin 2 GM/D5W 50 ML 2 GM/50 ML BAG IVPB (06:04)
[2022-03-10] MEDS: CYCLOBENZAPRINE HCL 10 MG TABLET PO (07:00)
--- NOTE | 2022-03-10 08:03 | PM.DS ---
DS: Admitting Diagnosis Discharge Date 03/10/22 Admitting Diagnosis OA knee Left DS: Discharge Diagnosis Discharge Diagnosis (1) Status post total left knee replacement: Code(s): Z96.652 - Presence of left artificial knee joint Status: Acute Assessment and Plan: Postop day 1: Left total knee arthroplasty. Patient tolerated procedure well. No complications. Pain manageable with pain medication. No numbness or tingling. We had a lengthy discussion regarding postoperative wound care, limitations, expectations, and exercises. Patient shows good understanding. She has had initial physical therapy and is tolerating it well. DVT prophylaxis: 81 mg baby aspirin b.i.d. for 14 days. Pain medication: Percocet. Prednisone. Meloxicam. Patient has followup appointment with Dr. Trevizo in 3 weeks. DS: Summary Hospital Course Reason for hospitalization: Total knee arthroplasty Hospital Course: Patient tolerated procedure well. Has had initial PT/OT. Status at Discharge Functional status at discharge: uses cane/walker Overall status at discharge: patient is progressing back to baseline Time Spent with Patient Time attestation: Total time spent providing and/or coordinating discharge services: Exam Narrative: 61-year-old overweight female. Resting comfortably in bed. Alert and oriented x3. No acute distress. Wearing compression socks bilaterally. Dressing dry and intact. Mild swelling. No ecchymosis. No erythema. No hematoma. Range of motion limited due to pain. Calf nontender. Neurologic status intact. No varicosities. Distal pulses palpable. DS: Data Data Completed and Pending Labs on day of discharge: Labs from last 24 hours 03/10/22 03/10/22 05:23 05:23 WBC 9.7 RBC 3.58 L Hgb 10.5 L Hct 32.9 L MCV 91.9 MCH 29.3 MCHC 31.9 L RDW 15.1 H Plt Count 177 MPV 9.7 Immature Gran % (Auto) 0.4 Neut % (Auto) 68.1 Lymph % (Auto) 22.1 Sanders % (Auto) 9.0 H Eos % (Auto) 0.2 Baso % (Auto) 0.2 Lymph # (Auto) 2.15 Sanders # (Auto) 0.9 H Eos # (Auto) 0.0 Baso # (Auto) 0.0 Abs Immat Gran (auto) 0.04 H Absolute Neuts (auto) 6.6 Absolute Nucleated RBC 0.0 Nucleated RBC % 0.0 Sodium 139 Potassium 4.4 Chloride 107 Carbon Dioxide 30 Anion Gap 2 L BUN 13 Creatinine 0.90 Estim Creat Clear Calc 75 Estimated GFR > 60 Glucose 107 Calcium 8.5 Discharge Plan Discharge Patient Disposition: Home, Self-Care Discharge Instructions: See green instruction sheets Stand Alone Forms: General Discharge Instructions Follow-up/Referrals: Margarita Alvarez PA [Physician Toby Maker] - Discharge Medications: New aspirin 81 mg tablet,delayed release (DR/EC) 81 mg PO BID 14 Days Qty: 28 0RF meloxicam 15 mg tablet 15 mg PO DAILY Qty: 30 0RF Rx Instructions: Cut in half. Take 1/2 in morning and 1/2 at night. Take with food. Stop if stomach upset. prednisone 5 mg tablet 5 mg PO DAILY 21 Days Qty: 21 0RF oxycodone-acetaminophen 5-325 mg tablet 1 - 2 tablet PO Q4-6H MDD 6 PRN (Reason: pain) Qty: 30 0RF Continued multivitamin Tablet 1 tablet PO DAILY cholecalciferol (vitamin D3) 125 mcg (5,000 unit) Tablet 125 mcg PO DAILY Held ibuprofen 800 mg Tablet 800 mg PO PRN PRN (Reason: Pain) Hold Instructions: Resume on 04/20/22. Hold while taking Meloxicam
[2022-03-10] MEDS: SENNA/DOCUSATE SODIUM TABLET 2 TAB PO (08:08)
[2022-03-10] MEDS: predniSONE 5 MG TABLET PO (08:08)
[2022-03-10] MEDS: FAMOTIDINE 20 MG TABLET PO (08:08)
[2022-03-10] MEDS: ASPIRIN 81 MG ENTERIC TABLET PO (08:08)
--- NOTE | 2022-03-10 08:08 | WPDANESPN ---
Anes - Prog Note Post-Op Date/Time: 03/10/22 08:08 Cardiovascular status: normal Respiratory status: normal Airway patency: baseline Mental status: baseline Post-Op hydration status: normal Vital Signs: Last Vital Signs Temp 36.7 C 03/10/22 05:44 Pulse 59 L 03/10/22 05:44 Resp 20 03/10/22 05:44 BP 120/58 L 03/10/22 05:44 Pulse Ox 100 03/10/22 05:44 O2 Del Method Room Air 03/09/22 12:59 O2 Flow Rate 2 03/09/22 10:22 Pain Score (VAS): 5 I/O: Intake & Output 03/09/22 03/10/22 03/10/22 23:59 07:59 15:59 Intake Total 1700 750 Balance 1700 750 Laboratory Tests 03/10/22 05:23 03/10/22 05:23 03/10/22 03/10/22 05:23 05:23 WBC 9.7 RBC 3.58 L Hgb 10.5 L Hct 32.9 L MCV 91.9 MCH 29.3 MCHC 31.9 L RDW 15.1 H Plt Count 177 MPV 9.7 Immature Gran % (Auto) 0.4 Neut % (Auto) 68.1 Lymph % (Auto) 22.1 Sandoval % (Auto) 9.0 H Eos % (Auto) 0.2 Baso % (Auto) 0.2 Lymph # (Auto) 2.15 Sandoval # (Auto) 0.9 H Eos # (Auto) 0.0 Baso # (Auto) 0.0 Abs Immat Gran (auto) 0.04 H Absolute Neuts (auto) 6.6 Absolute Nucleated RBC 0.0 Nucleated RBC % 0.0 Sodium 139 Potassium 4.4 Chloride 107 Carbon Dioxide 30 Anion Gap 2 L BUN 13 Creatinine 0.90 Estim Creat Clear Calc 75 Estimated GFR > 60 Glucose 107 Calcium 8.5 Post-procedural complaints: none Patient Feedback: Patient satisfied with anesthetic care.
[2022-03-10] MEDS: MELOXICAM 7.5 MG TABLET PO (08:09)
[2022-03-10] MEDS: polyethylene glycoL 3350 17 GM POWD.PACK PO (08:09)
== END 2022-03-10 10:07 | disposition home or self-care (01) ==
LOC: ANHSURGERY 08:51 → ANHSUROVER 10:27
PROVIDERS: Physician Assistant Surgical; PCP Physician Assistant; Visit Provider Orthopaedic Surgery
PROC: (CPT 27447; principal; 2022-03-09 07:30)
DX: M17.12 Unilateral primary osteoarthritis, left knee (principal); G89.18 Other acute postprocedural pain; E66.9 Obesity, unspecified; Z68.37 Body mass index [BMI] 37.0-37.9, adult
CPT/HCPCS: 27447; 64447; 36415; 73560; 80048; 80307; 82040; 82565; 82947; 85025; 86850; 86900; 86901; 87081; 97110; 97116; 97161; 97165; 97530; 97535; A9270; C1713; C1776; J0131; J0171; J0690; J1100; J1170; J1885; J2250; J2270; J2405; J2704; J2795; J3010; J7030; J7120; J7512

== ENCOUNTER 2022-03-29 11:52 | Outpatient (CLI) | payer OTHER, SELFPAY ==
[2022-03-29 12:48] LABS: Strep Group A RT-PCR DETECTED (Negative)
== END 2022-03-29 11:53 | disposition home or self-care (01) ==
LOC: ANHLAB 11:55
PROVIDERS: PCP Physician Assistant; Visit Provider Physician Assistant
DX: J02.9 Acute pharyngitis, unspecified (principal)
CPT/HCPCS: 87651

== ENCOUNTER 2022-07-20 10:43 | Emergency (ER) | payer OTHER, SELFPAY ==
[2022-07-20] VITALS (21 sets, daily range): BP systolic 118–145; BP diastolic 59–80; PULSE 48–82; RESP 10–19; TEMP 36.7; O2SAT 100
--- NOTE | ~2022-07-20 | CT_ITS ---
EXAMINATION: CTA brain carotid DATE: 07/20/2022 13:34 INDICATION: Dizziness. TECHNIQUE: Computed tomographic angiography (CTA) of the head was performed without and with 100 mL O mnipaque-350 intravenous contrast. CTA of the neck was performed with intravenous contrast. Automated exposure control and iterative reconstruction technique were employed. The dose-length product was 1 709.83 mGy-cm. Maximum intensity projection and volume rendered 3D-reconstructions were created by chrissie navarro technologist on a separate workstation. COMPARISON: Head CT 06/12/2009 FINDINGS: HEAD CTA: There is a prominent perivascular space in the left basal ganglia. There is no intracranial hemorrhage, acute infarction, or abnormal intracranial mass lesion. The ventricles are normal in siz e. There is mucosal thickening in the paranasal sinuses including near complete opacification of sphe noid sinus. There is sclerosis of the marsh of sphenoid sinus, consistent with chronic sinusitis. The orbits are normal. The mastoid air cells are normal. The vertebral areas are codominant. There is no significant stenosis of basilar artery or the posterior cerebral arteries. There is no significant s tenosis of the intracranial internal carotid arteries or anterior or middle cerebral arteries. Anteri or communicating artery is normal. The posterior communicating arteries are normal. There is no aneur ysm. NECK CTA: There are no pathologically enlarged lymph nodes. There is no significant stenosis of the v ertebral arteries. There is no visible plaque in the proximal internal carotid arteries. There is 0% stenosis of the proximal right internal carotid artery relative to normal distal artery lumen diamete r (NASCET criteria). There is 0% stenosis of the proximal left internal carotid artery relative to no rmal distal artery lumen diameter. There is severe cervical spondylosis. IMPRESSION: 1. Normal brain. 2. No aneurysm or significant intracranial arterial stenosis. 3. 0% stenosis of the proximal internal carotid arteries relative to normal distal artery lumen diame ters (NASCET criteria). 4. Chronic sinusitis. Reviewed, dictated and finalized at location L. IMPRESSION: 1. Normal brain. 2. No aneurysm or significant intracranial arterial stenosis. 3. 0% stenosis of the proximal internal carotid arteries relative to normal dis hugh artery lumen diameters (NASCET criteria). 4. Chronic sinusitis.
--- NOTE | 2022-07-20 11:11 | ECG_ITS ---
Measurements Intervals Normal Rate: 58 P: 40 ME: 145 QRS: 12 QRSD: 97 T: 41 QT: 440 QTc: 435 Interpretive Statements SINUS BRADYCARDIA BASELINE ARTIFACT- I, II, III, AVR, AVL, AVF BORDERLINE ECG COMPARED TO ECG 12/16/2021 08:31:24 SINUS BRADYCARDIA NOW PRESENT Electronically Signed On 07-20-2022 13:13:20 CDT by Sterling Hui D.O.
--- NOTE | 2022-07-20 11:34 | ED.DIZZY ---
HPI - Dizziness General Chief Complaint: Dizziness Stated Complaint: light headed, neck pain Time Seen by Provider: 07/20/22 10:52 Source: patient Mode of arrival: ambulatory Limitations: no limitations History of Present Illness HPI Narrative: This is a 61-year-old female who presents to the ED via EMS with chief complaint of neck pain and dizziness. Patient states that this started yesterday. Reports the dizziness is intermittent and episodic in nature. Specifically worsened with sitting up or standing up. Patient reports the pain in her neck is on the left side and radiates superiorly and inferiorly. This started yesterday while she was cleaning the house. Patient states she went to her chiropractor this morning who sent her to the ER for evaluation of this dizziness with the pain. She did not have any manipulations done. Patient reports sensory alteration to the left foot toes and left arm. Denies any focal weakness, fevers, chills, chest pain, shortness of breath, abdominal pain, vomiting, urinary problems, LOC or head injury. Related Data Allergies Allergy/AdvReac Type Severity Reaction Status Date / Time No Known Allergies Allergy Verified 07/20/22 10:50 Review of Systems Review of Systems: CONSTITUTIONAL: Denies fever, chills, or sweats. EYES: Denies visual changes, redness, or discharge. ENT: Denies rhinorrhea, congestion, sore throat, or otalgia. CARDIOVASCULAR: Denies chest pain, palpitations, or edema. RESPIRATORY: Denies cough or dyspnea. GASTROINTESTINAL: Denies abdominal pain, nausea, vomiting, or diarrhea. GENITOURINARY: Denies dysuria or hematuria. SKIN: Denies rash or itching. MUSCULOSKELETAL: Denies back pain, joint pain, or myalgia. NEUROLOGIC: Denies headache, numbness, dizziness, or weakness. PSYCHIATRIC: Denies anxiety or depression. [facility] Past Medical History Medical History (Updated 07/20/22 @ 15:07 by Tyler Rodriguez PA-C) Anxiety History of stress test (~2019) Surgical History Surgical History (Updated 05/26/22 @ 16:03 by Marian Wright MA) History of foot surgery History of total left knee replacement (~03/09/22) History of tubal ligation Family History Family History Father Cancer Other Cerebrovascular accident Social History Social History Smoking status: Never smoker Additional smoking assessment comments: DENIES ANY FORM OF TOBACCO USE Alcohol intake: current Drinks per week: 2 Substance use: never Substance use type: does not use Lack of Transportation: No Lack of Food: Never True Current Housing: I Have Housing Concerned About Future Housing: No Difficulty Paying Gas/Electric Bills: No Difficulty Paying for Meds: No Currently Unemployed: No Education: High School Diploma/GED Difficulty w/ Childcare or Family Care: No Living arrangements: with family Spiritual care concerns: No Exam Narrative: GENERAL: Well-appearing, well-nourished, and in no acute distress. HEAD: Normocephalic, atraumatic. EYES: PERRLA and EOMI. ENT: Nares clear, no rhinorrhea or epistaxis. Mucous membranes moist. Oropharynx without tonsillar hypertrophy exudate or other lesions. NECK: Supple. No adenopathy or masses. CHEST: No respiratory distress. Clear to auscultation. No wheezes rales or rhonchi HEART: Regular rate and rhythm. No murmur heard. Normal peripheral pulses. ABDOMEN: Soft, nontender, nondistended, normal active bowel sounds. MSK: Normal range of motion. No edema. SKIN: Warm, dry, no rash. NEURO: Alert and oriented x3. No focal deficits. Cranial nerves II through XII intact. Normal coordination. Negative pronator drift. 5 out of 5 strength and sensation in the upper and lower extremities. PSYCH: Normal mood and affect. Course Vital Signs Vital signs: Vital Signs Temperature 98.0 F 07/20/22 10:44 Pulse
[2022-07-20] MEDS: ORPHENADRINE CITRATE 100 MG TABLET.ER PO (11:54)
[2022-07-20] MEDS: SODIUM CHLORIDE 0.9% IV 1,000 ML 999 ML IV CONT (11:59)
[2022-07-20] MEDS: MECLIZINE HCL 25 MG TABLET PO (12:00)
[2022-07-20 12:46] LABS: Alanine Aminotransferase 20 U/L (6-35); Albumin Level 3.9 g/dL (3.5-5.1); Alkaline Phosphatase 84 U/L (38-126); Anion Gap 4 mmol/L (8-16); Aspartate Amino Transferase 22 U/L (14-36); Bilirubin,Total 0.5 mg/dL (0.2-1.3); Blood Urea Nitrogen 16 mg/dL (7-17); Calcium 8.5 mg/dL (8.4-10.2); Carbon Dioxide 28 mmol/L (22-30); Chloride 106 mmol/L (98-107); Estimated CRCL calculation 92 ml/min; Estimated Glomerular Filt Rate > 60; Glucose 93 mg/dL (65-110); Potassium 3.7 mmol/L (3.4-5.0); Sodium 138 mmol/L (137-145)
[2022-07-20 12:49] LABS: Basophils Percent Auto 0.5 % (0.2-1.2); Eosinophils Absolute Auto 0.1 K/mm3 (0-0.3); Eosinophils Percent Auto 1.1 % (0-4.4); Hematocrit 36.7 % (37.0-47.0); Hemoglobin 11.5 g/dL (12.0-15.0); Immature Granulocyte Absolute 0.02 K/mm3 (0.00-0.031); Immature Granulocyte Percent A 0.2 % (0-0.5); Lymphocytes Absolute Auto 2.31 K/mm3 (0.9-3.2); Lymphocytes Percent Auto 26.5 % (18.3-44.2); Mean Corpuscular HGB Conc 31.3 g/dl (32-36); Mean Corpuscular Volume 89.3 fl (80-100); Mean Platelet Volume 9.7 fl (7.4-10.4); Monocytes Absolute Auto 0.6 K/mm3 (0.1-0.6); Monocytes Percent Auto 7.2 % (2.6-8.5); Neutrophils Absolute Auto 5.6 K/mm3 (1.3-6.7); Neutrophils Percent Auto 64.5 % (45.5-73.1); Platelet Count Result 217 k/mm3 (150-375); Red Blood Count 4.11 M/mm3 (4.2-5.4); Red Cell Distribution Width 14.9 % (11.5-14.5); White Blood Count 8.7 K/mm3 (4.5-10.0)
[2022-07-20] MEDS: PROCHLORPERAZINE EDISYLATE 10 MG/2 ML VIAL IV PUSH (14:28)
[2022-07-20] MEDS: KETOROLAC 15 MG/ML VIAL (*BKC) IV PUSH (14:28)
[2022-07-20] MEDS: diphenhydrAMINE HCl INJ 50 MG/ML VIAL 25 MG IV PUSH (14:28)
== END 2022-07-20 15:20 | disposition home or self-care (01) ==
PROVIDERS: Emergency Provider Physician Assistant; PCP Physician Assistant
DX: I95.1 Orthostatic hypotension (principal); M54.2 Cervicalgia; Z96.652 Presence of left artificial knee joint; R00.1 Bradycardia, unspecified
CPT/HCPCS: 36415; 70496; 70498; 80053; 85025; 93005; 96361; 96365; 96375; 99284; A9270; J0131; J0780; J1200; J1885; J7030; Q9967

== ENCOUNTER 2022-09-16 09:09 | Outpatient (CLI) | payer OTHER, SELFPAY ==
--- NOTE | ~2022-09-16 | XR_ITS ---
Clinical Indication: Cough PA and lateral views of the chest: Comparison: 12/17/2020 Findings: Stable calcified right basilar granuloma. The lungs are otherwise clear, without evidence o f focal consolidation or pleural effusion. Cardiomediastinal silhouette is within normal limits. Bon es and soft tissues are unremarkable. Impression: No acute abnormality. Reviewed, dictated and finalized at location . Impression: No acute abnormality.
== END 2022-09-16 09:10 | disposition home or self-care (01) ==
PROVIDERS: PCP Physician Assistant; Visit Provider Physician Assistant
DX: R05.9 Cough, unspecified (principal)
CPT/HCPCS: 71046

== ENCOUNTER 2023-04-26 13:19 | Outpatient (CLI) | payer OTHER, SELFPAY ==
--- NOTE | ~2023-04-26 | DEXA_ITS ---
Bone Density Report Name: ERYN GODOY Age: 62 Sex: Female Ethnicity: White Date of : 1960 Indication: postmenopausal; screening for osteoporosis; parental hip fracture; height loss; Referring Provider: HEIDI, JAQUI Study: Bone densitometry was performed. Exam Date: April 26, 2023 Accession number: [id number] Bone Density: Region BMD T-score Z-score Classification AP Spine(L2, L3, L4) 1.362 2.6 4.1 Normal Femoral Neck (Left) 0.869 0.2 1.5 Normal Total Hip (Left) 1.183 2.0 2.9 Normal Femoral Neck (Right) 0.923 0.7 2.0 Normal Total Hip (Right) 1.045 0.8 1.8 Normal Total Hip Mean 1.114 1.4 2.4 Normal World Health Organization criteria for BMD impression classify patients as: Normal (T-score at or above -1.0), Osteopenia (T-score between -1.0 and -2.5), or Osteoporosis (T-score at or below -2.5). 10-year Fracture Risk: FRAX not reported because: All T-scores for Spine Total, Hip Total, Femoral Neck at or above -1.0 Previous Exams: Region Exam Age BMD T-score BMD Change BMD Change Date g/cm2 vs Baseline vs Previous AP Spine (L2-L4) 04/26/2023 62 1.362 2.6 -0.051 (-3.6%) -0.051 (-3.6%) 04/18/2020 59 1.413 3.0 Total Hip(Left) 04/26/2023 62 1.183 2.0 0.023 (2.0%) 0.023 (2.0%) 04/18/2020 59 1.160 1.8 Total Hip(Right) 04/26/2023 62 1.045 0.8 -0.049 (-4.4%) -0.049 (-4.4%) 04/18/2020 59 1.094 1.2 *Denotes significance at 95% confidence level, LSC for AP Spine = 0.022 g/cm2, LSC for Total Hip = 0.027 g/cm2 Clinical Information Provided by Patient: Parent has had a hip fracture Has used the following medications: Vitamin D Patient maximum height was 67 Menopause Age: 52 Drinks caffeinated beverages Onset of menses at age 15 Number of children 3 Impression: The patient has normal bone mass. The patient has risk factors, including: parental hip fracture. The BMD for the AP Spine (L2-L4) decreased, changing by -3.6% since the last DXA exam. The BMD for the Total Hip(Right) decreased, changing by -4.4% since the last DXA exam. Discussion: BONE DENSITY IS ABOVE THE MINIMUM DESIRABLE LEVEL AT ALL SKELETAL SITES TESTED. This patient?s bone mineral density is above the minimum desirable level (T-score -1.0 or better) at all sites measured. The patient should follow a healthful lifestyle (good nutrition with adequate calcium and vitamin D, and appropriate weight-bearing exercise). Foll
--- NOTE | ~2023-04-26 | MM_ITS ---
EXAMINATION: MM screening keiry BI w juan j HISTORY: Screening mammogram TECHNIQUE: Craniocaudal and mediolateral oblique 3-D tomosynthesis images were obtained and synthetic 2-D images were generated. CAD analysis was submitted and interpreted. COMPARISON: 04/20/2021, 04/18/2020 bilateral screening mammograms BREAST PARENCHYMAL COMPOSITION: There are scattered areas of fibroglandular density. FINDINGS: There is no evidence of suspicious mass, calcification, or architectural distortion to sugg est malignancy in either breast. There has been no suspicious interval change. IMPRESSION: 1. No mammographic evidence of malignancy. 2. Recommend routine screening mammography in one year. BI-RADS Category 1: Negative Reviewed, dictated and finalized at location A. TRICAL ENGINEERING INTERN
== END 2023-04-26 13:20 | disposition home or self-care (01) ==
PROVIDERS: PCP Physician Assistant; Visit Provider Nurse Practitioner
DX: Z12.31 Encounter for screening mammogram for malignant neoplasm of breast (principal); Z13.820 Encounter for screening for osteoporosis
CPT/HCPCS: 77063; 77067; 77080

== ENCOUNTER 2024-02-20 12:33 | Outpatient (CLI) | payer OTHER, SELFPAY ==
--- NOTE | ~2024-02-20 | XR_ITS ---
XR cervical spine min 6V Ordering provider: Lebron Schultz, [place] History: . NECK PAIN . Comparison: None. FINDINGS: VERTEBRAL BODIES: Normal height and alignment. No visible fracture or subluxation. The dens is intact . Degenerative changes of the spine. DISK SPACES: Narrowing of the disc C3-C4, C4-C5, C5-C6 and C6-7. Multilevel facet joint disease. Mult ilevel uncovertebral joint osteoarthritic changes. Narrowing of the foramina at the level of C5-C6 an d C6-C7 bilaterally. PARASPINOUS SOFT TISSUES: No prevertebral soft tissue swelling. IMPRESSION: No acute osseous abnormality cervical spine. Multilevel degenerative disc disease. Reviewed, dictated and finalized at location A. ER
== END 2024-02-20 12:34 | disposition home or self-care (01) ==
LOC: GOSHIMG 12:35
PROVIDERS: PCP Family Medicine; Visit Provider Chiropractor
DX: M50.31 Other cervical disc degeneration, high cervical region (principal); M50.321 Other cervical disc degeneration at C4-C5 level; M50.322 Other cervical disc degeneration at C5-C6 level; M50.323 Other cervical disc degeneration at C6-C7 level
CPT/HCPCS: 72052

== ENCOUNTER 2024-07-02 00:17 | Day surgery (SDC) | payer OTHER, SELFPAY ==
[2024-06-20 09:15] VITALS: BMI 36.8
--- OUTSIDE RECORDS SUMMARY | 2024-07-02 00:19 | XMS_ITS | Encounter Summary ---
Author Organization [facility] Address [address] [place] [address] Care Team Providers Care Coal Digger Name Role Phone Emerson Ortiz MD Primary Care Provider [phone] Encounter Details Date Type Department Care Team (Late st Contact Info) Description 10/24/2021 Lab Requisition [facility] DermPath Lab [address] [place] [id number] Landon Campos MD [address] [place] [address] Social History Tobacco Use Types Packs/Day Years Used Date Smoking Tobacco: Passive Smo ke Exposure - Never Smoker Smokeless Tobacco: Never Comments No Sex and Gender Information Value Date Recorded Sex Assigned at Not on file Legal Sex Female 5:27 PM CDT Gender Identity Not on file Sexual Orientation Not on file documented as of this encounter Plan of Treatment Not on file documented as of this encounter Procedures Procedure Name Priority Date/Time Associated Diagnosis Comments DERMATOPATHOLOGY Routine 10/22/2021 3:33 AM CDT documented in this encounter Results * DERMATOPATHOLOGY (10/22/2021 3:33 AM CDT) Case Report Dermatopathology Report Case: [id number] Authorizing Provider: Landon Campos MD Collected: 10/22/2021 03:33 AM Ordering Location: [facility] Care DermPath Lab Received: 10/24/2021 11:06 AM Pathologist: Ashley Cates MD Specimen: Skin, left back 2 3:53 PM CDT DERMATOPATHOLOGY LABORATORY Final Diagnosis Specimen A. SKIN, left back: DERMATOFIBROMA, SUPERFICIAL PORTIONS OF (D23.9) (see microscopic description) 2 3:53 PM T DERMATOPATHOLOGY LABORATORY Clinical History BCCA. 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 The specimen consists of a shave biopsy measuring [id number]. Jar 0. 2 3:53 PM CDT DERMATOPATHOLOGY LABORATORY Microscopic Description Specimen A. SKIN, left back: There is epidermal hyperplasia. Within the dermis, there are fibrohistiocytic cells in haphazard array among coarse collagen bundles. There is focal course collagen. Factor XIIIa is increased in the fibrohistiocytic cells. CD34 fails to highlight the dermal proliferation. The base of the lesion is not visualized. Additional deeper sections were obtained and reviewed. 2 3:53 PM CDT DERMATOPATHOLOGY LABORATORY Disclaimer An external and internal positive and negative controls are appropriate for the histochemical, immunohistochemical and immunofluorescence stain(s) in this case (if any), except where stated explicitly. The performance characteristics of the stain(s) cited in this report were developed and its performance characteristic determined by the Dermatopathology Laboratory at [facility], directed by Dr. Anayeli Salter. These tests need not be, and therefore are not, approved by the [place] Food and Drug Administration. The tests are used for clinical purposes. Billing Codes Specimen Charges Stain Charges 10196 1 70312 04248 1 1 2 3:53 PM CDT DERMATOPATHOLOGY LABORATORY Embedded Images 2 3:53 PM CDT DERMATOPATHOLOGY LABORATORY Pathology/Cytolo gy TISSUE SPECIMEN FROM SKIN / Unknown 10/22/2021 3:33 AM CDT 10/24/2021 11:06 AM CDT Landon Campos MD LAB - PATHOLOGY/CYTOLOGY ORDER IMELDA Final Result DERMATOPATHOLOGY LABORATORY [facility] - Department of Dermatology [facility] Specialized Medicine [address] [place] [address], [address] [phone] documented in this encounter Visit Diagnoses Not on filedocumented in this encounter Care Teams Coal Digger Relationship Specialty Start Date End Date Emerson Ortiz MD [address] [place] [address] PCP - General Family Medicine 04/16/16 documented as of this encounter
--- OUTSIDE RECORDS SUMMARY | 2024-07-02 00:19 | XMS_ITS | Clinical Summary ---
Author Organization [facility] Address [address] [place] [address] Care Team Providers Care Service Counter Cashier Name Role Phone Emerson Ortiz MD Primary Care Provider [phone] Source Comments [facility],non-owned Affiliates and Associated Physician Practices is amultiple site organization consisting of ambulatory clinics and hospital sitesin [place], [place], [place] and [place]. This disclosure is being madepursuant to the Care Everywhere program and may not contain all information available regarding this patient. Last updated 17.[facility] Allergies No known active allergies Medications * Be aware that medications may not be up to date on this document. Alwaysverify current medications with the patient. B Complex Vitamins (VITAMIN B-COMPLEX 100 IJ) Active albuterol HFA (PROAIR HFA) 108 (90 BASE) MCG/ACT inhalerIndicatio ns:Acute bronchitis, unspecified organism Inhale 2 Puffs by mouth every 4 hours as needed for Shortness of Breath, Wheezing or Cough 1 Inhaler 7 Active Social History Tobacco Use Types Packs/Day Years Used Date Smoking Tobacco: Passive Smo ke Exposure - Never Smoker Smokeless Tobacco: Never Comments No Sex and Gender Information Value Date Recorded Sex Assigned at Not on file Legal Sex Female 5:27 PM CDT Gender Identity Not on file Sexual Orientation Not on file Last Filed Vital Signs Vital Sign Reading Time Taken Comments Blood Pressure 136/84 04/16/2016 2:29 PM RN HOSPICE Pulse 68 04/16/2016 2:29 PM RN HOSPICE Temperature 36.9 C (98.5 F) 04/16/2016 2:29 PM RN HOSPICE Respiratory Rate 16 04/16/2016 2:29 PM RN HOSPICE Oxygen Saturation 96% 04/16/2016 2:29 PM RN HOSPICE Inhaled Oxygen Concentration - - Weight 86.2 kg (190 lb) 04/16/2016 2:29 PM RN HOSPICE Height 170.2 cm (5' 7 ) 04/16/2016 2:29 PM RN HOSPICE Body Mass Index 29.76 04/16/2016 2:29 PM RN HOSPICE Plan of Treatment Health Maintenance Due Date Last Done Comments COLOGUARD (AGES 45-75) - COL ON CA SCREENING 1960 COLON MONITORING 1960 COLONOSCOPY - COLON CA SCREENING 1962 CT COLONOGRAPHY - COLON CA SCREENING 1960 Colorectal Cancer Screening 1960 FIT - COLON CA SCREENING 1962 FLEX SIG - COLON CA SCREENING 1960 LIPID TESTING 1960 MAMMOGRAM 1960 PAP SMEAR 1962 HIV SCREENING 1977 HEPATITIS C SCREENING 10/26/1980 DTAP/TDAP/TD VACCINES (1 - Tdap) 1981 PNEUMOCOCCAL VACCINE 50+ (1 of 1 - PCV) 2012 ZOSTER VACCINE (1 of 2) 2012 COVID-19 VACCINE ( - 2023-2 5 season) 2023 DEPRESSION SCREENING 02/22/2024 INFLUENZA VACCINE (Season Ended) 2024 Respiratory Syncytial Virus (RSV) Vaccine Pt: or over 60 yrs (1 - 1-dose 75+ series) 2037 HEPATITIS B VACCINE Aged Out No longe r eligible based on patient's age to complete this topic HIB VACCINE Aged Out No longer eligi ble based on patient's age to complete this topic HPV VACCINE Aged Out No longer eligi ble based on patient's age to complete this topic MENINGOCOCCAL (Group B) VACC INE SHARED DECISION-MAKING Aged Out No longer eligibl e based on patient's age to complete this topic MENINGOCOCCAL GROUPS A/C/Y/W VACCINE Aged Out No longer eligible b ased on patient's age to complete this topic Insurance [employer] Care Teams Service Counter Cashier Relationship Specialty Start Date End Date Emerson Ortiz MD [address] [place] [address] PCP - General Family Medicine 04/16/16
[2024-07-02 11:02] VITALS: BP 140/58; PULSE 63; RESP 18; TEMP 36.1; O2SAT 100
[2024-07-02] MEDS: LACTATED RINGERS 1,000 ML 150 ML IV CONT (11:12)
--- NOTE | 2024-07-02 12:00 | P.PNAN_ITS ---
Anes - Initial Pre Proc Eval Procedure: Operation Date: 07/02/24 12:30 Proposed Procedures p Screening Colonoscopy - Russ Medrano MD Date/Time: 07/02/24 12:00 Surgeon: Russ Medrano MD Pre Op Diagnosis: screening colon Patient Data Age: 63 Gender: F Height: 1.7 m Weight: 104.7 kg Last Vital Signs Temp 36.1 C L 07/02/24 11:02 Pulse 63 07/02/24 11:02 Resp 18 07/02/24 11:02 BP 140/58 L 07/02/24 11:02 Pulse Ox 100 07/02/24 11:02 O2 Del Method Room Air 07/02/24 11:02 Allergies Allergy/AdvReac Type Severity Reaction Status Date / Time No Known Allergies Allergy Verified 07/02/24 11:01 Home Medications ?Medication ?Instructions ?Recorded ?Confirmed ?Type cholecalciferol (vitamin D3) 125 125 mcg PO DAILY 09/28/23 07/02/24 History mcg (5,000 unit) capsule zinc sulfate 50 mg zinc (220 mg) 50 mg PO DAILY 09/28/23 07/02/24 History capsule (Zinc-220) biotin 1 mg tablet 1 mg PO DAILY 06/20/24 07/02/24 History multivitamin (Daily Multi-Vitamin 1 tablet PO DAILY 06/20/24 07/02/24 History tablet) omega 6-uzb-kxv-fish oil 1,000 mg 1 cap PO DAILY 06/20/24 07/02/24 History (120 mg-180 mg) capsule (Fish Oil) Patient hx anesthesia problems: none Family hx anesthesia problems: none Results Review: All pre-operative results and documents have been reviewed as part of the pre- operative evaluation. [facility] Past Medical History Medical History History of stress test (~2019) Anxiety Surgical History Surgical History History of total left knee replacement (~03/09/22) History of tubal ligation History of foot surgery Family History Family History Father Cancer Other Cerebrovascular accident Social History Social History Smoking status: Never smoker Additional smoking assessment comments: DENIES ANY FORM OF TOBACCO USE Alcohol intake: current Drinks per week: 2 Substance use: never Substance use type: does not use Do You Feel Safe in your Home?: Yes Lack of Transportation: No Lack of Food: Never True Current Housing: I Have Housing Concerned About Future Housing: No Difficulty Paying Gas/Electric Bills: No Difficulty Paying for Meds: No Currently Unemployed: No Education: High School Diploma/GED Difficulty w/ Childcare or Family Care: No Living arrangements: with family Spiritual care concerns: No Anes - Eval Final PreProcedure Day of Procedure 07/02/24 12:00 Patient weight: obese Heart: regular rate and rhythm Lungs: clear to auscultation Airway: Mallampati scale class II Neurological: alert and oriented Last oral intake: >/= 8 hours ASA classification: II Emergent: no Anesthetic plan: proceed Anesthesia type and monitoring: general GIVS and standard monitoring Results Review: All pre-operative results and documents have been reviewed as part of the pre- operative evaluation. Informed Consent: The patient's anesthetic plan and its attendant risks and benefits were discussed with the patient/family/POA. Questions were solicited and answers provided to the satisfaction of the patient/family/POA.
--- NOTE | 2024-07-02 12:28 | PM.IMHP ---
H&P: HPI History of Present Illness Date/Time: 07/02/24 12:28 Chief Complaint: Screening colonoscopy Narrative: This is the patient's 2nd colonoscopy after 10 years. There are no GI symptoms and there is no family history of colorectal cancer. Review of Systems Review of Systems: All systems reviewed & are unremarkable except as noted in HPI and below PMFSH Past Medical History Medical History History of stress test (~2019) Anxiety Surgical History Surgical History History of total left knee replacement (~03/09/22) History of tubal ligation History of foot surgery Family History Family History Father Cancer Other Cerebrovascular accident Social History Social History Smoking status: Never smoker Additional smoking assessment comments: DENIES ANY FORM OF TOBACCO USE Alcohol intake: current Drinks per week: 2 Substance use: never Substance use type: does not use Do You Feel Safe in your Home?: Yes Lack of Transportation: No Lack of Food: Never True Current Housing: I Have Housing Concerned About Future Housing: No Difficulty Paying Gas/Electric Bills: No Difficulty Paying for Meds: No Currently Unemployed: No Education: High School Diploma/GED Difficulty w/ Childcare or Family Care: No Living arrangements: with family Spiritual care concerns: No Meds Home Medications and Allergies Home Medications ?Medication ?Instructions ?Recorded ?Confirmed ?Type cholecalciferol (vitamin D3) 125 125 mcg PO DAILY 09/28/23 07/02/24 History mcg (5,000 unit) capsule zinc sulfate 50 mg zinc (220 mg) 50 mg PO DAILY 09/28/23 07/02/24 History capsule (Zinc-220) biotin 1 mg tablet 1 mg PO DAILY 06/20/24 07/02/24 History multivitamin (Daily Multi-Vitamin 1 tablet PO DAILY 06/20/24 07/02/24 History tablet) omega 5-sra-knp-fish oil 1,000 mg 1 cap PO DAILY 06/20/24 07/02/24 History (120 mg-180 mg) capsule (Fish Oil) Allergies Allergy/AdvReac Type Severity Reaction Status Date / Time No Known Allergies Allergy Verified 07/02/24 11:01 Vital Signs Vital Signs - 24 hr 07/02/24 11:02 Temperature 97 F L Pulse Rate 63 Respiratory Rate 18 Blood Pressure 140/58 L Pulse Oximetry 100 Oxygen Delivery Room Air Exam Const: General: cooperative and healthy appearing Resp: Effort & Inspection: normal respiratory effort and able to speak in complete sentences Auscultation: clear to auscultation bilaterally Cardio: Rate: regular rate Rhythm: regular rhythm GI: Inspection: normal to inspection GI Palp: No No hepatosplenomegaly present Auscultation: normal bowel sounds Rectal Exam: deferred Skin: General skin exam: normal color Psych: Appearance: grossly normal Mental Status: mental status grossly normal Assessment and Plan Assessment and plan (1) Encounter for screening colonoscopy: Code(s): Z12.11 - Encounter for screening for malignant neoplasm of colon Status: Acute Assessment and Plan: The patient is deemed a good candidate for the procedure. Consent signed. Will proceed.
[2024-07-02 12:51] VITALS: BP 133/66; PULSE 64; RESP 20; O2SAT 97
[2024-07-02 13:01] VITALS: BP 119/60; PULSE 57; RESP 14; O2SAT 100
[2024-07-02 13:11] VITALS: BP 139/78; PULSE 52; RESP 16; O2SAT 100
== END 2024-07-02 13:30 | disposition home or self-care (01) ==
PROVIDERS: PCP Family Medicine; Referring Provider Obstetrics & Gynecology Gynecology; Visit Provider Internal Medicine Gastroenterology
PROC: 0DJD8ZZ Inspection of Lower Intestinal Tract, Via Natural or Artificial Opening Endoscopic (ICD-10-PCS; CPT 45378; principal; 2024-07-02 12:30)
DX: Z12.11 Encounter for screening for malignant neoplasm of colon (principal); E66.9 Obesity, unspecified; Z68.36 Body mass index [BMI] 36.0-36.9, adult
CPT/HCPCS: 45378; J2003; J2704; J7120

== ENCOUNTER 2024-09-15 09:03 | Outpatient (CLI) | payer OTHER, SELFPAY ==
--- NOTE | ~2024-09-15 | MM_ITS ---
EXAMINATION: MM screening keiry BI w juan j HISTORY: Screening TECHNIQUE: Craniocaudal and mediolateral oblique 3-D tomosynthesis images were obtained and synthetic 2-D images were generated. CAD analysis was submitted and interpreted. COMPARISON: Comparison to multiple prior studies sequentially, with oldest reviewed study dated 04/18. BREAST PARENCHYMAL COMPOSITION: Not dense: There are scattered areas of fibroglandular density. FINDINGS: There is no evidence of suspicious mass, calcification, or architectural distortion to sugg est malignancy in either breast. There has been no suspicious interval change. IMPRESSION: 1. No mammographic evidence of malignancy. 2. Recommend routine screening mammography in one year. BI-RADS Category 1: Negative Reviewed, dictated and finalized at location A.
== END 2024-09-15 09:04 | disposition home or self-care (01) ==
PROVIDERS: PCP Family Medicine; Visit Provider Obstetrics & Gynecology Gynecology
DX: Z12.31 Encounter for screening mammogram for malignant neoplasm of breast (principal)
CPT/HCPCS: 77063; 77067